=== PATIENT | male | born 1975 | race Caucasian/White ===

== ENCOUNTER 2017-09-07 07:55 | Emergency (ER) | payer OTHER ==
[~2017-09-07] VITALS: Ht 182.9 cm; Wt 104.5 kg
[2017-09-07 08:07] VITALS: BP 134/100
[2017-09-07] MEDS ORDERED: DOXY100C2 PO (08:52)
== END 2017-09-07 09:17 | disposition home or self-care (01) ==
LOC: ER 07:56
DX: L03.211 Cellulitis of face (principal); F17.200 Nicotine dependence, unspecified, uncomplicated
CPT/HCPCS: 99283; A6449

== ENCOUNTER 2021-01-26 19:17 | Emergency (ER) | payer SELFPAY ==
[~2021-01-26] VITALS: Ht 182.9 cm; Wt 106.8 kg
[2021-01-26 19:42] VITALS: BP 159/66
[2021-01-26] MEDS ORDERED: ALBU8HFA PO (19:55)
== END 2021-01-26 20:00 | disposition home or self-care (01) ==
LOC: ER 19:17
DX: Z76.0 Encounter for issue of repeat prescription (principal); J45.909 Unspecified asthma, uncomplicated; Z79.899 Other long term (current) drug therapy
CPT/HCPCS: 99283